=== PATIENT | male | born 1955 | race Two or more races ===

== ENCOUNTER 2021-01-11 09:39 | Emergency (ER) | payer MEDICARE, OTHER ==
[~2021-01-11] VITALS: Ht 162.6 cm; Wt 78.9 kg
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
[2021-01-11] MEDS ORDERED: LIDOCAINE HCL/PF 1% 30 ML VIAL TP ONE (11:00)
[2021-01-11] MEDS ORDERED: BACI/NEOM/POLY B OINT PKT 1 UDPKT PACKET TP ONE (11:00)
[2021-01-11 11:27] VITALS: BP 120/67
--- NOTE | 2021-01-11 11:27 | NUR ---
Patient discharged to home in stable condition. Written and verbal after care instructions given. Patient verbalizes understanding of instruction.
== END 2021-01-11 11:28 | disposition home or self-care (01) ==
LOC: ER 09:46
DX: S01.111A Laceration without foreign body of right eyelid and periocular area, initial encounter (principal); J45.909 Unspecified asthma, uncomplicated; E11.9 Type 2 diabetes mellitus without complications; Y00.XXXA Assault by blunt object, initial encounter; Y93.89 Activity, other specified; Y92.89 Other specified places as the place of occurrence of the external cause; Y99.8 Other external cause status
CPT/HCPCS: 12013; 70450; 99284; A6403; J3490

== ENCOUNTER 2023-10-19 13:06 | Emergency (ER) | payer MEDICARE, OTHER ==
[~2023-10-19] VITALS: Ht 170.2 cm; Wt 88.5 kg
[2023-10-19] MEDS ORDERED: HYDROCODONE/APAP 5/325MG TABLET ONE (17:07)
[2023-10-19] MEDS: HYDROCODONE/APAP 5/325MG TABLET PO ONE (17:09)
[2023-10-19] MEDS ORDERED: ACET-2605 PO (19:18)
[2023-10-19] MEDS ORDERED: IBUP-1955 PO (19:18)
[2023-10-19 19:55] VITALS: BP 130/85; TEMP 97.9; O2SAT 97
== END 2023-10-19 19:55 ==
LOC: ER 13:53
DX: S59.092A Other physeal fracture of lower end of ulna, left arm, initial encounter for closed fracture (principal); S59.091A Other physeal fracture of lower end of ulna, right arm, initial encounter for closed fracture; S00.211A Abrasion of right eyelid and periocular area, initial encounter; R51.9 Headache, unspecified; J45.909 Unspecified asthma, uncomplicated; E11.9 Type 2 diabetes mellitus without complications; Y04.8XXA Assault by other bodily force, initial encounter; Y93.89 Activity, other specified; Y92.89 Other specified places as the place of occurrence of the external cause; Y99.8 Other external cause status
CPT/HCPCS: 70450-TC; 73090-TC